=== PATIENT | female | born 1945 | race Caucasian/White ===

== ENCOUNTER 2018-02-18 10:41 | Outpatient (CLI) | payer MEDICARE, OTHER | END 2018-02-18 10:42 | disposition home or self-care (01) | LOC: BICMAMMO 10:41 | PROVIDERS: ATTEND Obstetrics & Gynecology | DX: M85.80 Other specified disorders of bone density and structure, unspecified site (principal); Z79.890 Hormone replacement therapy | CPT/HCPCS: 77080 ==

== ENCOUNTER 2018-07-12 10:24 | Outpatient (CLI) | payer MEDICARE, OTHER | END 2018-07-12 10:25 | disposition home or self-care (01) | LOC: BICMAMMO 10:24 | PROVIDERS: ATTEND Obstetrics & Gynecology | DX: Z12.31 Encounter for screening mammogram for malignant neoplasm of breast (principal); R92.1 Mammographic calcification found on diagnostic imaging of breast; Z80.3 Family history of malignant neoplasm of breast | CPT/HCPCS: 77063; 77067 ==

== ENCOUNTER 2019-07-18 14:36 | Outpatient (CLI) | payer MEDICARE, OTHER ==
--- NOTE | 2019-07-18 16:34 | MMO ---
Bilateral MAMMO Bilat Screen [facility]. CLINICAL HISTORY: Patient is 74 years old and is seen for screening. The patient has the following family history of breast cancer: maternal aunt, at age 70, malignant (generic). The patient has no personal history of cancer. VIEWS: The views performed were: bilateral craniocaudal with tomosynthesis and bilateral mediolateral oblique with tomosynthesis. FILMS COMPARED: The present examination has been compared to prior imaging studies performed at [facility] on 04/06/2015, 04/12/2016, 07/02/2017 and 07/12/2018. This study has been interpreted with the assistance of computer-aided detection. MAMMOGRAM FINDINGS: There are scattered fibroglandular densities. There are stable benign appearing calcifications seen in both breasts. There are no suspicious masses, suspicious calcifications, or new areas of architectural distortion. IMPRESSION: THERE IS NO MAMMOGRAPHIC EVIDENCE OF MALIGNANCY. A ROUTINE FOLLOW-UP MAMMOGRAM IN 1 YEAR IS RECOMMENDED. THE RESULTS OF THIS EXAM WERE SENT TO THE PATIENT. ACR BI-RADS Category 2 - Benign finding MAMMOGRAPHY NOTE: 1. A negative mammogram report should not delay a biopsy if a dominant of clinically suspicious mass is present. 2. Approximately 10% to 15% of breast cancers are not detected by mammography. 3. Adenosis and dense breasts may obscure an underlying neoplasm. Reported by: HUNTER RIVERA MD Electonically Signed: [id number]
== END 2019-07-18 14:37 | disposition home or self-care (01) ==
LOC: BICMAMMO 14:36
PROVIDERS: ATTEND Obstetrics & Gynecology
DX: Z12.31 Encounter for screening mammogram for malignant neoplasm of breast (principal); Z80.3 Family history of malignant neoplasm of breast
CPT/HCPCS: 77063; 77067